=== PATIENT | male | born 1985 | race Caucasian/White ===

== ENCOUNTER 2017-08-24 20:14 | Emergency (ER) | payer BC ==
[2017-08-24] MEDS ORDERED: Ketorolac 60 MG/2 ML SDV IM ONE (20:16)
[2017-08-24 20:40] VITALS: BP 145/105
[2017-08-24] MEDS: traMADol 50 MG Tab PO ONE (21:14)
--- NOTE | 2017-08-24 21:18 | EDM.PDOC ---
ED HPI GENERAL MEDICAL PROBLEM - General Chief Complaint: Lower Extremity Injury/Pain Stated Complaint: RT FOOT PAIN Time Seen by Provider: 08/24/17 20:37 Source of Information: Reports: Patient, Family History Limitations: Reports: No Limitations - History of Present Illness INITIAL COMMENTS - FREE TEXT/NARRATIVE: 32 y.o.w.yared came to the ed after he stepped on an object with his r foot. Now addi feels pain like a Ball would be in his foot. No other acute medical issues. Onset Date: 08/24/17 Onset Time: 20:00 Duration: Hour(s): Location: Reports: Lower Extremity, Right Quality: Reports: Ache, Dull Severity: Mild Improves with: Reports: Rest Worsens with: Reports: Movement Context: Reports: Other (Playing basket ball) Associated Symptoms: Reports: No Other Symptoms Treatments FACTORY CLERK: Reports: Acetaminophen Right Lower Feet Pain Score (Numeric/FACES): 8 - Related Data Allergies Allergy/AdvReac Type Severity Reaction Status Date / Time No Known Allergies Allergy Verified 06/30/13 09:30 Home Meds: Home Meds Acetaminophen with Codeine [Tylenol with Codeine #3 Tablet] 1 each PO PRN [History] Acetaminophen/HYDROcodone [Lortab 500-5 MG] 1 tab PO Q6H PRN #24 tablet [Rx] Ibuprofen [Motrin] 800 mg PO Q4HR PRN 06/30/13 [History] Indomethacin 50 mg PO QID PRN #28 capsule 06/30/13 [Rx] traMADol [Ultram] 50 mg PO Q4H PRN #15 tab 08/24/17 [Rx] Past Medical History Cardiovascular History: Reports: High Cholesterol, Hypertension Gastrointestinal History: Reports: Other (See Below) Other Gastrointestinal History: is quite large Genitourinary History: Reports: Renal Disease Musculoskeletal History: Reports: Gout - Infectious Disease History Infectious Disease History: Reports: Chicken Pox - Past Surgical History Male Surgical History: Reports: Other (See Below) Other Male Surgeries/Procedures: numerous urethral surgeries prior to 2004 Social & Family History - Family History Family Medical History: Noncontributory - Tobacco Use Smoking Status *Q: Never Smoker Second Hand Smoke Exposure: No - Caffeine Use Caffeine Use: Reports: Coffee Caffeine Use Comment: 2 cups a day - Alcohol Use Date of Last Drink: 08/20/17 Time of Last Drink: 20:00 - Recreational Drug Use Recreational Drug Use: No Review of Systems - Review of Systems Review Of Systems: See Below Constitutional: Reports: No Symptoms Eyes: Reports: No Symptoms Ears: Reports: No Symptoms Nose: Reports: No Symptoms Mouth/Throat: Reports: No Symptoms Respiratory: Reports: No Symptoms Cardiovascular: Reports: No Symptoms GI/Abdominal: Reports: No Symptoms Genitourinary: Reports: No Symptoms Musculoskeletal: Reports: Foot Pain Skin: Reports: No Symptoms Neurological: Reports: No Symptoms Psychiatric: Reports: No Symptoms ED EXAM, GENERAL - Physical Exam Exam: See Below Exam Limited By: No Limitations General Appearance: Alert, WD/WN, Mild Distress Eye Exam: Bilateral Eye: Normal Inspection Ears: Normal External Exam Ear Exam: Bilateral Ear: Auricle Normal Nose: Normal Inspection Throat/Mouth: Normal Inspection Head: Atraumatic, Normocephalic Neck: Normal Inspection Respiratory/Chest: No Respiratory Distress Cardiovascular: Normal Peripheral Pulses, Regular Rate, Rhythm Peripheral Pulses: 1+: Brachial (R) GI/Abdominal: Normal Bowel Sounds, Soft (Male) Exam: Deferred Rectal (Males) Exam: Deferred Back Exam: Normal Inspection, Full Range of Motion Extremities: Normal Inspection, Normal Range of Motion, Non-Tender Neurological: Alert, Oriented, CN II-XII Intact, Normal Cognition, Abnormal Gait (due to right foot pain) Psychiatric: Normal Affect, Normal Mood Skin Exam: Warm, Dry, Intact, Normal Color, No Rash Lymphatic: No Adenopathy Course - Vital Signs Text/Narrative:: 32 y.o.w.m came to the ed after he stepped on an object with his r foot. Now addi feels pain like a Ball would be in his foot. No other acute medical issues. PE: Tender r foot, plantar aspect. Imaging: Foot: NAD Impression: Plantar tendonitis H/O Kidney disease TxL: Ultram, ICE Reexam: Improved Plan: D/C with instructions Last Recorded V/S: Last Vital Signs Temp 36.8 C 08/24/17 20:37 Pulse 122 H 08/24/17 20:37 Resp 19 08/24/17 20:37 BP 145/105 H 08/24/17 20:37 Pulse Ox 95 08/24/17 20:37 - Orders/Labs/Meds Orders: Active Orders 24 hr Category Date Time Status Ankle Min 3V Rt [CR] Stat Exams 08/24/17 20:16 Taken Foot Comp Min 3V Rt [CR] Stat Exams 08/24/17 20:16 Taken Ice Therapy [OM.PC] Routine Oth 08/24/17 20:16 Ordered Meds: Medications Discontinued Medications Generic Name Dose Route Start Last Admin Trade Name Freq PRN Reason Stop Dose Admin Ketorolac Tromethamine 60 mg 08/24/17 20:16 Toradol IM 08/24/17 20:17 ONETIME ONE Tramadol HCl 100 mg 08/24/17 21:04 08/24/17 21:14 Ultram PO 08/24/17 21:05 100 mg ONETIME ONE Administration Departure - Departure Time of Disposition: 21:14 Disposition: Home, Self-Care 01 Condition: Good Clinical Impression: Sprain of foot, right Qualifiers: Encounter type: initial encounter Qualified Code(s): S93.601A - Unspecified sprain of right foot, initial encounter - Discharge Information Prescriptions: traMADol [Ultram] 50 mg PO Q4H PRN #15 tab PRN Reason: severe pain Instructions: Foot Sprain Referrals: Gokul Valenzuela MD [Primary Care Provider] - Forms: ED Department Discharge Additional Instructions: Ice, rest and elevation, ultram for severe pain, please follow up, come back if your symptoms get worse acutely - My Orders Last 24 Hours: My Active Orders 08/24/17 20:16 Ankle Min 3V Rt [CR] Stat Foot Comp Min 3V Rt [CR] Stat Ice Therapy [OM.PC] Routine - Assessment/Plan Last 24 Hours: My Active Orders 08/24/17 20:16 Ankle Min 3V Rt [CR] Stat Foot Comp Min 3V Rt [CR] Stat Ice Therapy [OM.PC] Routine
--- NOTE | 2017-08-26 11:11 | CR ---
INDICATION: Playing volleyball and felt a pop on bottom of foot at the arch. RIGHT FOOT: Three views of the right foot revealed a small spur off the posterior calcaneus. Calcifications are noted anterior to the Achilles tendon and somewhat above its insertion, which may be on the basis of a previous injury in that area with dystrophic soft tissue calcifications, and should be correlated clinically. An acute fracture or dislocation, or other significant bone or joint abnormality , was not identified. MTDD
--- NOTE | 2017-08-26 11:53 | CR ---
INDICATION: Playing volleyball and felt a pop on arch - bottom of foot. RIGHT ANKLE: Three views of the right ankle were obtained and revealed the ankle mortise to appear intact, without a definite fracture or dislocation identified. There is some calcification at the distal portion of the anterior aspect of the Achilles tendon approximately 3-4 cm above the calcaneus, which may be on the basis of previous injury with dystrophic calcification. No other significant abnormalities were suggested, except for a small posterior calcaneal spur. MTDD
== END 2017-08-24 21:26 | disposition home or self-care (01) ==
LOC: FB.ED 20:14
DX: S93.601A Unspecified sprain of right foot, initial encounter (principal); M76.899 Other specified enthesopathies of unspecified lower limb, excluding foot; M70.871 Other soft tissue disorders related to use, overuse and pressure, right ankle and foot; E78.00 Pure hypercholesterolemia, unspecified; I10 Essential (primary) hypertension; W22.8XXA Striking against or struck by other objects, initial encounter
CPT/HCPCS: 73610; 73630; 99283; A9270

== ENCOUNTER → 2019-06-21 | Outpatient (CLI) | payer BC | LOC: FB.LAB 15:44 | PROVIDERS: ATTEND Internal Medicine Nephrology | DX: I12.9 Hypertensive chronic kidney disease with stage 1 through stage 4 chronic kidney disease, or unspecified chronic kidney disease (principal); N18.3 Chronic kidney disease, stage 3 (moderate) | CPT/HCPCS: 36415; 80069; 81001; 82570; 83735; 83970; 84156; 85014; 85018 ==

== ENCOUNTER 2020-04-11 15:53 | Emergency (ER) | payer BC ==
[2020-04-11] MEDS: Sodium Chloride 0.9% 10 ML Syringe FLUSH PRN ×2 (16:00→17:46)
[2020-04-11] MEDS ORDERED: Aspirin 81 MG Tab.Chew PO ONE (16:10)
[2020-04-11] MEDS ORDERED: Alum Hydroxide/Mag Hydroxide 30 ML, Lidocaine 2% 15 ML PO ONE ×2 (16:10)
[2020-04-11] MEDS ORDERED: Sodium Chloride 0.9% 1,000 ML IV ONE (16:20)
[2020-04-11] MEDS ORDERED: Metoprolol Tartrate 5 MG/5 ML SDV IVPUSH ONE ×2 (16:54→17:33)
--- NOTE | 2020-04-11 17:00 | EDM.PDOC ---
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 worked yesterday and today, no exertional component pt was walking down [address] at [facility] this PM and spoke with ED nurse (Jia), mentioned his CP, she advised him to go to walk-in clinic which he did EKG in walk-in clinic showed acute AK, however this was d/t baseline artifact and repeat EKG in ED without artifact showed no change in ST segments, no comparison however, pt has trop 4200 and 7x ULN, possible d/t GFR 36, repeat trop pending, no previous trop has sob with the epigastric pain, no n/v, no f/c/d 20y ago pt had an urethral stricture from unknown etiology and underwent urethoplasty, however 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 he has a fresh horizontal scar on his abd above his umbilicus which pt reports as hernia repair from 12/18 never smoked altho grew up in a household with smokers Treatments SOFTWARE LEAD: Reports: EKG - Related Data Allergies Allergy/AdvReac Type Severity Reaction Status Date / Time No Known Allergies Allergy Verified 04/11/20 16:03 Home Meds: Home Meds Ibuprofen [Motrin] 800 mg PO Q4HR PRN 06/30/13 [History] atorvaSTATin [Lipitor] 20 mg PO DAILY 04/11/20 [History] lisinopriL [Prinivil] 20 mg PO DAILY 04/11/20 [History] Past Medical History Cardiovascular History: Reports: High Cholesterol, Hypertension Gastrointestinal History: Reports: Other (See Below) Other Gastrointestinal History: is quite large Genitourinary History: Reports: Renal Disease, Other (See Below) Other Genitourinary History: Stage 4 kidney failure Musculoskeletal History: Reports: Gout Endocrine/Metabolic History: Reports: Obesity/BMI 30+ - Infectious Disease History Infectious Disease History: Reports: Chicken Pox - Past Surgical History Male Surgical History: Reports: Other (See Below) Other Male Surgeries/Procedures: numerous urethral surgeries prior to 2004 Social & Family History - Family History Family Medical History: Noncontributory - Tobacco Use Smoking Status *Q: Never Smoker - Caffeine Use Caffeine Use: Reports: Coffee Caffeine Use Comment: 2 cups a day - Recreational Drug Use Recreational Drug Use: No ED ROS GENERAL - Review of Systems Review Of Systems: See Below Constitutional: Reports: No Symptoms HEENT: Reports: No Symptoms Respiratory: Reports: Shortness of Breath Cardiovascular: Denies: Chest Pain Endocrine: Reports: No Symptoms GI/Abdominal: Reports: Abdominal Pain, Nausea : Reports: No Symptoms Musculoskeletal: Reports: No Symptoms Skin: Reports: No Symptoms Neurological: Reports: No Symptoms Psychiatric: Reports: No Symptoms Hematologic/Lymphatic: Reports: No Symptoms Immunologic: Reports: No Symptoms ED EXAM, GENERAL - Physical Exam Exam: See Below Exam Limited By: No Limitations General Appearance: Alert, WD/WN, No Apparent Distress Ears: Hearing Grossly Normal Nose: Normal Inspection Throat/Mouth: Normal Inspection, Normal Lips, Normal Teeth, Normal Gums, Normal Oropharynx, Normal Voice, No Airway Compromise Head: Atraumatic Neck: Normal Inspection. No: Lymphadenopathy (R), Lymphadenopathy (L) Respiratory/Chest: No Respiratory Distress, Lungs Clear, Normal Breath Sounds, No Accessory Muscle Use, Chest Non-Tender, Other (no cough, no dyspnea) Cardiovascular: Regular Rate, Rhythm, No Edema, No Gallop, No JVD, No Murmur GI/Abdominal: Normal Bowel Sounds, Soft Back Exam: Normal Inspection, Full Range of Motion. No: CVA Tenderness (R), CVA Tenderness (L) Extremities: Normal Inspection, Normal Range of Motion, Non-Tender, Other (trace pretib edema, sores from scratching on LEs b/l) Neurological: Alert, Oriented, CN II-XII Intact, Normal Cognition, No M otor/Sensory Deficits Psychiatric: Normal Affect, Normal Mood Skin Exam: Warm, Dry, Intact, Normal Color, No Rash Lymphatic: No Adenopathy Course - Vital Signs Last Recorded V/S: Last Vital Signs Temp 36.1 C 04/11/20 15:55 Pulse 115 H 04/11/20 15:55 Resp 17 04/11/20 15:55 BP 161/110 H 04/11/20 15:55 Pulse Ox 95 04/11/20 15:55 - Orders/Labs/Meds Orders: Active Orders 24 hr Category Date Time Status EKG Documentation Completion [RC] ASDIRECTED Care 04/11/20 16:11 Ordered Chest 1V Frontal [CR] Stat Exams 04/11/20 16:22 Ordered C-REACTIVE PROTEIN [CHEM] Stat Lab 04/11/20 16:22 Ordered D-DIMER QUANTITATIVE [COAG] Stat Lab 04/11/20 16:22 Ordered INR,PT,PROTHROMBIN TIME [COAG] Stat Lab 04/11/20 16:17 Ordered LIPASE [CHEM] Stat Lab 04/11/20 16:10 Ordered TROPONIN I [CHEM] Stat Lab 04/11/20 16:10 Ordered URINALYSIS W/MICROSCOPIC [UA W/MICROSCOPIC] [URIN] Stat Lab 04/11/20 16:10 Ordered Sodium Chloride 0.9% [Normal Saline] 1,000 ml Med 04/11/20 16:20 Ordered IV .BOLUS Sodium Chloride 0.9% [Saline Flush] Med 04/11/20 16:00 Active 10 ml FLUSH ASDIRECTED PRN EKG 12 Lead [EK] Routine Ther 04/11/20 16:10 Ordered Medication Orders Sodium Chloride (Normal Saline) 1,000 mls @ 999 mls/hr IV .BOLUS ONE Stop: 04/11/20 17:20 Last Admin: 04/11/20 16:29 Dose: 999 mls/hr Documented by: TIMOTHY Sodium Chloride (Saline Flush) 10 ml FLUSH ASDIRECTED PRN PRN Reason: IV Use Last Admin: 04/11/20 16:00 Dose: 10 ml Documented by: TIMOTHY Meds: Medications Generic Name Dose Route Start Last Admin Trade Name Freq PRN Reason Stop Dose Admin Sodium Chloride 1,000 mls @ 999 mls/hr 04/11/20 16:20 04/11/20 16:29 Normal Saline IV 04/11/20 17:20 999 mls/hr .BOLUS ONE Administration Sodium Chloride 10 ml 04/11/20 16:00 04/11/20 16:00 Saline Flush FLUSH 10 ml ASDIRECTED PRN Administration IV Use Discontinued Medications Generic Name Dose Route Start Last Admin Trade Name Freq PRN Reason Stop Dose Admin Aspirin 324 mg 04/11/20 16:10 04/11/20 16:16 Aspirin PO 04/11/20 16:11 324 mg ONETIME ONE Administration Al Hydroxide/Mg Hydroxide 30 0 ml 04/11/20 16:10 04/11/20 16:21 ml/ Lidocaine HCl 15 ml PO 04/11/20 16:11 30 ml ONETIME ONE Administration Metoprolol Tartrate 5 mg 04/11/20 16:54 Lopressor IVPUSH 04/11/20 16:55 ONETIME ONE - Re-Assessments/Exams Free Text/Narrative Re-Assessment/Exam: 04/11/20 19:32 trop 7x ULN x 2, d-dimer 8.9x ULN recalls RLE pain 2w ago c/w possible DVT cannot due chest CTA d/t GFR 36 d/w cardiology Dr All Domínguez at [facility] and hospitalist Dr Paulino, pt to be admitted to hospitalist with CV consult, Dr Domínguez and Jefferson agree that pts mild pleuritic CP is most c/w a PE heparin bolus 5000u and 1000 u/hr begun mild inc'd BNP c/w RF/PE/HF GI cocktail did not seem to help, given IV metoprolol x 2 pt stable here Departure - Departure Time of Disposition: 19:35 Disposition: DC/Tfer to Other 70 Reason for Transfer *Q: Other Condition: Good Clinical Impression: Pleuritic chest pain, Elevated d-dimer, Elevated troponin, Elevated brain natriuretic peptide (BNP) level, Chronic renal insufficiency, Elevated C- reactive protein (CRP), Chest pain, rule out acute myocardial infarction Sepsis Event Note (ED) - Evaluation Sepsis Screening Result: No Definite Risk - Focused Exam Vital Signs: Vital Signs Temp Pulse Resp BP Pulse Ox 04/11/20 15:55 36.1 C 115 H 17 161/110 H 95 - My Orders Last 24 Hours: My Active Orders 04/11/20 16:00 Sodium Chloride 0.9% [Saline Flush] 10 ml FLUSH ASDIRECTED PRN 04/11/20 16:10 LIPASE [CHEM] Stat TROPONIN I [CHEM] Stat URINALYSIS W/MICROSCOPIC [UA W/MICROSCOPIC] [URIN] Stat EKG 12 Lead [EK] Routine 04/11/20 16:11 EKG Documentation Completion [RC] ASDIRECTED 04/11/20 16:17 INR,PT,PROTHROMBIN TIME [COAG] Stat 04/11/20 16:20 Sodium Chloride 0.9% [Normal Saline] 1,000 ml IV .BOLUS 04/11/20 16:22 Chest 1V Frontal [CR] Stat C-REACTIVE PROTEIN [CHEM] Stat D-DIMER QUANTITATIVE [COAG] Stat - Assessment/Plan Last 24 Hours: My Active Orders 04/11/20 16:00 Sodium Chloride 0.9% [Saline Flush] 10 ml FLUSH ASDIRECTED PRN 04/11/20 16:10 LIPASE [CHEM] Stat TROPONIN I [CHEM] Stat URINALYSIS W/MICROSCOPIC [UA W/MICROSCOPIC] [URIN] Stat EKG 12 Lead [EK] Routine 04/11/20 16:11 EKG Documentation Completion [RC] ASDIRECTED 04/11/20 16:17 INR,PT,PROTHROMBIN TIME [COAG] Stat 04/11/20 16:20 Sodium Chloride 0.9% [Normal Saline] 1,000 ml IV .BOLUS 04/11/20 16:22 Chest 1V Frontal [CR] Stat C-REACTIVE PROTEIN [CHEM] Stat D-DIMER QUANTITATIVE [COAG] Stat
--- NOTE | 2020-04-11 17:06 | CR ---
INDICATION: Epigastric pain x2 days. CHEST ONE VIEW: AP portable upright view of the chest was obtained 04/11/20 - no comparison. Heart did not appear enlarged. The upper field pulmonary vasculature appears slightly prominent, raising question of pulmonary vascular congestion possibly on other than cardiac basis. The possibility of an acute myocardial event with CHF would be a consideration. No definite active infiltrate or effusion was identified. No free air is noted under the hemidiaphragm leaves. IMPRESSION: Prominent upper lung field pulmonary vasculature raises question of pulmonary vascular congestion - correlate clinically as to etiology. MTDD
[2020-04-11] MEDS ORDERED: Heparin Sodium 5,000 Units/ML Vial ONE (17:26)
[2020-04-11] MEDS ORDERED: Nitroglycerin 2% Oint 1 GM UD Packet TOP ONE (17:33)
[2020-04-11 17:38] VITALS: BP 167/116; PULSE 89
[2020-04-11] MEDS ORDERED: Heparin Sodium 5,000 Units/ML Vial IVPUSH ONE (17:40)
[2020-04-11] MEDS ORDERED: Heparin Sodium/0.45% NaCl 500 ML IV SCH (18:00)
== END 2020-04-11 19:35 ==
LOC: FB.ED 15:53
DX: R07.81 Pleurodynia (principal); R79.1 Abnormal coagulation profile; R79.89 Other specified abnormal findings of blood chemistry; I12.9 Hypertensive chronic kidney disease with stage 1 through stage 4 chronic kidney disease, or unspecified chronic kidney disease; N18.9 Chronic kidney disease, unspecified; R79.0 Abnormal level of blood mineral; R79.82 Elevated C-reactive protein (CRP); E78.00 Pure hypercholesterolemia, unspecified; E66.9 Obesity, unspecified; Z68.43 Body mass index [BMI] 50.0-59.9, adult; Z79.899 Other long term (current) drug therapy
CPT/HCPCS: 36415; 71045; 81001; 83690; 84484; 85379; 85610; 85730; 86140; 93005; 96361; 96365; 96375; 96376; 99285-25; A9270-GY; J1644; J3490; J7030

== ENCOUNTER 2021-08-29 12:59 | Emergency (ER) | payer BC ==
[2021-08-29] MEDS ORDERED: Sodium Chloride 0.9% 10 ML Syringe FLUSH PRN (13:37)
[2021-08-29] MEDS ORDERED: Sodium Chloride 0.9% 1,000 ML IV ONE (13:39)
[2021-08-29 19:13] VITALS: BP 138/86; PULSE 88
== END 2021-08-29 16:55 | disposition home or self-care (01) ==
LOC: FB.ED 12:59
DX: E86.0 Dehydration (principal); R55 Syncope and collapse; S00.83XA Contusion of other part of head, initial encounter; S89.92XA Unspecified injury of left lower leg, initial encounter; E78.00 Pure hypercholesterolemia, unspecified; I10 Essential (primary) hypertension; E66.9 Obesity, unspecified; Z79.01 Long term (current) use of anticoagulants; Z79.899 Other long term (current) drug therapy; X50.1XXA Overexertion from prolonged static or awkward postures, initial encounter; Y92.59 Other trade areas as the place of occurrence of the external cause
CPT/HCPCS: 36415; 70450; 73562; 80053; 81001; 83735; 84484; 85025; 85610; 93005; 99284; J7030